=== PATIENT | female | born 1980 | race Caucasian/White ===

== ENCOUNTER 2017-09-12 04:38 | Inpatient (IN) | payer MEDICAID ==
[~2017-09-12] VITALS: Ht 160 cm; Wt 77.1 kg
[2017-09-12 04:52] VITALS: BP_SYST 144
--- NOTE | 2017-09-12 04:52 | NUR ---
Placed in room 08 . Side rails up. Report given to SANDRA Gann.
--- NOTE | 2017-09-12 04:52 | NUR ---
Pt states that she noticed R hand pain and swelling for the last four days. Pt reported heroin abuse and abscess on both arms. Redness and swelling noted. Will continue to monitor. No distress noted. AAOx4.
--- NOTE | 2017-09-12 04:53 | NUR ---
ER at bedside examining patient.
[2017-09-12] MEDS ORDERED: NACL 0.9% 1,000 ML IV ONE ×2 (04:55→08:15)
[2017-09-12] MEDS ORDERED: NS 1000 ML IV.SOLN IV ONE (05:00)
[2017-09-12] MEDS ORDERED: LEVOFLOXACIN 500 MG/D5W 100 ML IV ONE (05:00)
[2017-09-12] MEDS ORDERED: MORPHINE 4 MG/ML INJ. SYRINGE IVP ONE (05:00)
[2017-09-12] MEDS ORDERED: ONDANSETRON HCL 4 MG/2 ML VIAL IVP ONE (05:00)
--- NOTE | 2017-09-12 05:30 | NUR ---
Pt is hard stick. Multiple attempts. Dr. Simental made aware.
[2017-09-12 06:25] LABS: BARBITURATE, URINE NEGATIVE (NEG <=200); BENZODIAZEPINE, URINE NEGATIVE (NEG <=150); CANNABINOID, URINE NEGATIVE (NEG <=50); COCAINE, URINE NEGATIVE (NEG <=150); METHAMPHETAMINES SCREEN,URINE POSITIVE (NEG <=500); OPIATE, URINE POSITIVE (NEG <=100); PHENCYCLIDINE SCREEN,URINE NEGATIVE (NEG <=25); UR TRICYCLIC ANTIDEPRESSANTS NEGATIVE (NEG <=300); URINE AMPHETAMINE POSITIVE (NEG <=500); URINE METHADONE NEGATIVE (NEG <=200); URINE OXYCODONE SCREEN NEGATIVE (NEG <=100); URINE PROPOXYPHENE SCREEN NEGATIVE (NEG <=300)
[2017-09-12 07:02] LABS: BASOPHILS # (AUTO) 0.3 K/uL (0.0-0.2); EOSINOPHILS # (AUTO) 0.3 K/uL (0.0-0.4); EOSINOPHILS % (AUTO) 2.8 % (0.0-4.0); HEMATOCRIT 30.5 % (36-48); HEMOGLOBIN 10.3 g/dL (12.0-16.0); LYMPHOCYTES # (AUTO) 2.1 K/uL (1.0-5.5); LYMPHOCYTES % (AUTO) 18.9 % (20.5-51.5); MEAN CORPUSCULAR HEMOGLOBIN 31 pg (27-31); MEAN CORPUSCULAR HGB CONC 34 % (32-36); MEAN CORPUSCULAR VOLUME 90 fL (79.0-98.0); MONOCYTES # (AUTO) 0.5 K/uL (0.0-1.0); MONOCYTES % (AUTO) 4.2 % (1.7-9.3); NEUTROPHILS % (AUTO) 71.2 % (40.0-70.0); PLATELET COUNT (AUTO) 294 K/uL (130-430); RED BLOOD CELL COUNT(AUTO) 3.39 MIL/uL (4.2-6.2); RED CELL DISTRIBUTION WIDTH 13.4 % (9.0-15.0); WHITE BLOOD COUNT (AUTO) 11.2 K/uL (4.8-10.8)
[2017-09-12 07:09] LABS: CALCIUM 9.4 mg/dL (8.4-11.0); CREATININE 0.74 mg/dL (0.55-1.30)
--- NOTE | 2017-09-12 07:10 | NUR ---
Report and care endorsed to Willard FLORES.
[2017-09-12 07:14] LABS: ALBUMIN 3.3 g/dL (3.4-4.8); TOTAL BILIRUBIN 0.5 mg/dL (0.0-1.0)
[2017-09-12 07:21] LABS: BASOPHILS % (AUTO) 2.9 % (0.0-2.0)
[2017-09-12 07:24] LABS: POTASSIUM 4.2 mmol/L (3.5-5.1)
[2017-09-12 08:05] LABS: ERYTHROCYTE SEDIMENTATION RATE 62 MM/HR (0-20)
--- NOTE | 2017-09-12 08:30 | NUR ---
Admission: Received from ER on a wheelchair with the diagnosis of Cellulitis. Alert and oriented x4. Pain is 8/10 constant, shooting on the lower right arm. Oriented to room set up and hospital visiting time. Verbalized understanding. Call light within reach.
--- NOTE | 2017-09-12 08:32 | NUR ---
Patient will be admitted to care of Dr. Camilo. Admitted to MedSurg unit. Will go to room 125B. Belongings list completed. Summary report printed. Report will be given at bedside.
[2017-09-12 08:43] VITALS: BP_SYST 114
--- NOTE | 2017-09-12 09:00 | NUR ---
rounds rec patient accompanied by boyfriend at bedside. awake alert with ivf infusing well on the r foot. no infiltration noted. noted r arm to be swollen and both feet. advised to stay in bed to prevent further swelling. resp easy and unlabored. no acute distress noted. bed in low position and side rails up and locked.call light within reached and instructed patient to call for assistance.
[2017-09-12] MEDS ORDERED: HYDROcodone/ACETAMIN 5-325 MG TAB (NORCO/ VICODIN) PO PRN (10:00)
[2017-09-12] MEDS ORDERED: MORPHINE 2 MG/ML INJ. SYRINGE IVP ONE (10:00)
[2017-09-12] MEDS ORDERED: MAGNESIUM SULFATE 50 ML IV PRN (13:00)
[2017-09-12] MEDS ORDERED: LORazepam 2 MG/ML VIAL IVP PRN (13:00)
[2017-09-12] MEDS ORDERED: ZOLPIDEM TARTRATE 5 MG TABLET PO PRN (13:00)
[2017-09-12] MEDS ORDERED: ACETAMINOPHEN 325 MG TABLET PO PRN (13:00)
[2017-09-12] MEDS ORDERED: MUPIROCIN 2% TOPICAL OINTMENT 22 GM NS PRN (13:00)
[2017-09-12] MEDS ORDERED: DOCUSATE SODIUM 100 MG CAPSULE PO PRN (13:00)
[2017-09-12] MEDS ORDERED: POTASSIUM CHLORIDE 20 MEQ TAB.PRT.SR PO PRN (13:00)
[2017-09-12] MEDS ORDERED: DEXAMETHASONE SOD PHOSPHATE 4 MG/ML VIAL IVP ONE (13:15)
[2017-09-12] MEDS ORDERED: KETOROLAC TROMETHAMINE 30 MG VIAL IVP ONE (13:15)
--- NOTE | 2017-09-12 13:37 | NUR ---
rounds dr acosta at bedside to see patient.
[2017-09-12 13:45] LABS: AMYLASE 31 U/L (0-100); FREE T4 (FREE THYROXINE) 0.8 ng/dl (0.8-1.5)
[2017-09-12 13:47] LABS: ALCOHOL, BLOOD < 3 mg/dL (<10)
--- NOTE | 2017-09-12 14:08 | NUR ---
Consult MD: Ortho. Dr. Nava called (Dr. Mitchell arch cushion skiving machine operator) spoke to bairon dialed [phone] Alanis
[2017-09-12] MEDS ORDERED: DOCUSATE SODIUM 100 MG CAPSULE PO ONE (14:15)
[2017-09-12] MEDS ORDERED: THIAMINE HCL 100 MG TABLET PO ONE (14:15)
[2017-09-12] MEDS ORDERED: FOLIC ACID 1 MG TABLET PO ONE (14:15)
[2017-09-12] MEDS: PIPERACILLIN/TAZO 3.375 GM in NS 50 ML IV SCH ×3 (15:40→23:59)
[2017-09-12] MEDS: NACL 0.9% 1,000 ML IV SCH (15:41)
[2017-09-12] MEDS: LORazepam 1 MG TABLET PO SCH ×2 (15:42→21:24)
[2017-09-12] MEDS: MUPIROCIN 2% TOPICAL OINTMENT 22 GM NS SCH ×2 (15:43→21:00)
[2017-09-12] MEDS ORDERED: NICOTINE 21 MG/24 HR PATCH.TD24 TD ONE (16:00)
--- NOTE | 2017-09-12 16:00 | NUR ---
rounds sleeping at intervals. no sob noted.
--- NOTE | 2017-09-12 19:00 | NUR ---
closing notes seen by dr gorman at bedside and endorsed to [facility]. no sob noted. resting comfortably at bedside. no acute distress noted. denies pain at this time.
--- NOTE | 2017-09-12 19:46 | NUR ---
ROUNDS PATIENT RESTING COMFORTABLY IN BED, AWAKE, ALERT, ORIENTED X4, DENIES ANY ORACIO AND DISCOMFORT AT THIS TIME. ASSESSMENT DONE AND DOCUMENTED. SEE FLOWSHEET. NEEDS ATTENDED TO. SAFETY MEASURES IN PLACED. BED IN LOW AND LOCKED POSITION. CALL LIGHT PLACED WITHIN REACH.
[2017-09-12] MEDS: DOCUSATE SODIUM 100 MG CAPSULE PO SCH (21:24)
--- NOTE | 2017-09-12 22:05 | NUR ---
MEDICATION DUE MEDICATIONS GIVEN SCHEDULED, TOLERATED WELL. WILL CONTINUE TO MONITOR.
[2017-09-12 23:36] LABS: HCG,QUAL RESULT NEGATIVE (NEGATIVE)
[2017-09-12 23:46] LABS: BILIRUBIN,URINE NEGATIVE (NEGATIVE); BLOOD, URINE 3+ (NEGATIVE); CLARITY/URINE CLEAR (CLEAR); COLOR,URINE YELLOW (YELLOW); GLUCOSE,URINE NEGATIVE (NEGATIVE); KETONES,URINE NEGATIVE (NEGATIVE); LEUKOCYTE ESTERASE ,URINE NEGATIVE (NEGATIVE); NITRITE, URINE NEGATIVE (NEGATIVE); PH,URINE 7.5 (5.0-8.0); PROTEIN URINE NEGATIVE (NEGATIVE); UROBILINOGEN,URINE 0.2 (0.2-1.0)
--- NOTE | 2017-09-13 00:05 | NUR ---
ROUNDS PATIENT AWAKE, VITALS STABLE, DENIES ANY PAIN AT THIS TIME. FAMILY AT THE BEDSIDE VISITING PATIENT. WILL COTINUE TO MONITOR.
[2017-09-13 00:23] VITALS: BP_SYST 118
[2017-09-13 00:39] LABS: BACTERIA,URINE RARE /HPF (None Seen); RBC,URINE 20-50 /HPF (0-3); WBC,URINE 0-3 /HPF (0-3)
[2017-09-13] MEDS: OXYCODONE/ACETAMINOPHEN 5-325 TABLET PO PRN ×2 (01:52→09:00)
--- NOTE | 2017-09-13 02:15 | NUR ---
PATIENT RESTING: Patient resting quietly. No acute distress noted. Vital signs within normal range.
--- NOTE | 2017-09-13 04:17 | NUR ---
PATIENT RESTING: Patient resting quietly. No acute distress noted. Vital signs within normal range.
[2017-09-13] MEDS: LORazepam 1 MG TABLET PO SCH ×3 (05:24→21:34)
[2017-09-13] MEDS: NACL 0.9% 1,000 ML IV SCH ×3 (05:25→20:09)
[2017-09-13] MEDS: PIPERACILLIN/TAZO 3.375 GM in NS 50 ML IV SCH ×3 (05:25→19:49)
--- NOTE | 2017-09-13 06:54 | NUR ---
CLOSING NOTES PATIENT AWAKE, VITALS STABLE, NO PAIN AT THIS TIME. ALL NEEDS ATTENDED TO. SAFETY AND FALL MEASURES MAINTAINED. BED IN LOW AND LOCKED POSITION. CALL LIGHT PLACED WITHIN REACH.
--- NOTE | 2017-09-13 07:15 | NUR ---
Patient refuses blood draw for medical lab director despite explanation of purposes and benefits.
[2017-09-13 08:00] VITALS: BP_SYST 127
--- NOTE | 2017-09-13 08:00 | NUR ---
A/OX4, NO PAIN NOR DISTRESS AT THIS TIME. IV ON THE RIGHT FOOT, #22, INFUSING WITH NS 100ML/HR. AMBULATORY. INSTRUCTED SEX CRIMES DETECTIVE LIGHT, BED IN LOW AND LOCKED POSITION. WILL CONTINUE TO MONITOR.
[2017-09-13] MEDS: FOLIC ACID 1 MG TABLET PO SCH (08:59)
[2017-09-13] MEDS: DOCUSATE SODIUM 100 MG CAPSULE PO SCH ×2 (08:59→20:20)
[2017-09-13] MEDS: NICOTINE 21 MG/24 HR PATCH.TD24 TD SCH (08:59)
[2017-09-13] MEDS: THIAMINE HCL 100 MG TABLET PO SCH (08:59)
[2017-09-13] MEDS: MUPIROCIN 2% TOPICAL OINTMENT 22 GM NS SCH ×2 (09:00→21:00)
--- NOTE | 2017-09-13 10:05 | NUR ---
PATIENT IS WALKING IN THE ROOM, NO SIGNS OF DISTRESS NOTED.
[2017-09-13 10:06] LABS: HEMOGLOBIN A1C 5.3 % (4.8-5.6)
[2017-09-13 11:08] LABS: T4 (THYROXINE) 5.7 ug/dL (4.5-12.0)
--- NOTE | 2017-09-13 11:57 | NUR ---
PATIENT IS SLEEPING AT THIS TIME. CHEST RISING AND FALLING EVENLY WITHOUT DISTRESS.
[2017-09-13 12:00] VITALS: BP_SYST 122
[2017-09-13] MEDS: VANCOMYCIN HCL 1,000 MG in NS 250 ML IV SCH (16:40)
--- NOTE | 2017-09-13 17:00 | NUR ---
Patient needs a large bore IV access. Dr. Alanis is informed, and PICC is ordered.
[2017-09-13 17:43] LABS: PLATELET COUNT (AUTO) 140 K/uL (130-430); RED CELL DISTRIBUTION WIDTH 13.6 % (9.0-15.0)
[2017-09-13 17:52] LABS: HEMATOCRIT 29.8 % (36-48); HEMOGLOBIN 10.3 g/dL (12.0-16.0); MEAN CORPUSCULAR HEMOGLOBIN 31 pg (27-31); MEAN CORPUSCULAR HGB CONC 34 % (32-36); MEAN CORPUSCULAR VOLUME 91 fL (79.0-98.0); RED BLOOD CELL COUNT(AUTO) 3.29 MIL/uL (4.2-6.2); WHITE BLOOD COUNT (AUTO) 13.8 K/uL (4.8-10.8)
[2017-09-13 17:53] LABS: CALCIUM 9.5 mg/dL (8.4-11.0); CREATININE 0.77 mg/dL (0.55-1.30); PHOSPHORUS 2.6 mg/dL (2.7-4.5)
[2017-09-13 17:54] LABS: POTASSIUM 4.5 mmol/L (3.5-5.1)
[2017-09-13 18:02] LABS: ATYPICAL LYMPHOCYTES % 0 % (0-0); BAND % (MANUAL) 2 % (0-6); BASOPHILS % (MANUAL) 0 % (0-2); EOSINOPHILS % (MANUAL) 0 % (0-7); LYMPHOCYTES % (MANUAL) 24 % (20-46); MONOCYTES % (MANUAL) 2 % (0-11)
--- NOTE | 2017-09-13 18:25 | NUR ---
PICC NURSE IS AT BEDSIDE FOR INSERTION OF PICC. CHECKLIST AND CONSENT COMPLETED.
--- NOTE | 2017-09-13 19:23 | NUR ---
PICC NURSE CONFIRMS THAT PICC IS IN PROPER POSITION FOR USE.
--- NOTE | 2017-09-13 19:45 | NUR ---
Opening Notes Received patient resting in bed with friends at the bedside. AAOx4 and able to verbalize needs. Lungs and heart sounds wnl. PICC line inserted and okay to use. Flushed and has good blood return. IV on the right foot patent with no s/s of infection or infiltration. Patient has pain of 8/10 on the left hand and arm. Oriented the patient to the room and use of the call light and the phone. Patient refused bed alarm and was informed of the risks and benefits. Patient acknowledges teaching. Call light within reach and will monitor on rounds.
[2017-09-13 20:00] VITALS: BP_SYST 132
[2017-09-13] MEDS: ONDANSETRON HCL 4 MG/2 ML VIAL IVP PRN (20:19)
[2017-09-13] MEDS: MORPHINE 2 MG/ML INJ. SYRINGE IVP PRN (20:20)
--- NOTE | 2017-09-13 21:39 | NUR ---
REQUESTED FAN Patient stated she requested a fan from earlier today but they haven't brought it to her room yet. [employer] was notified and wanted approval from warehouse general laborer for them to obtain a fan from storage. cargo service supervisor okayed. Fan was brought to patient's room and was educated on safety precautions.
--- NOTE | 2017-09-13 22:09 | NUR ---
Patient in room sitting at the bedside. Administered pain medication and ativan. Informed patient to rest in bed due to possible instability when walking. patient understand and acknowledges teaching of indication and side effects. No respiratory distress at this time.
[2017-09-14] VITALS: BP_SYST 118
[2017-09-14] MEDS: PIPERACILLIN/TAZO 3.375 GM in NS 50 ML IV SCH ×5 (00:28→23:00)
--- NOTE | 2017-09-14 00:55 | NUR ---
Patient in bed asleep. measured PICC line circumference at 32cm. IV fluids infusing. PICC site clean dry and intact.
[2017-09-14 01:07] LABS: PROTHROMBIN TIME 10.1 SECS (9.5-12.5)
--- NOTE | 2017-09-14 02:05 | NUR ---
Patient in bed complaints of fan too cold. Fan turned off. No further needs. Call light within reach.
[2017-09-14] MEDS: VANCOMYCIN HCL 1,000 MG in NS 250 ML IV SCH (04:00)
--- NOTE | 2017-09-14 04:30 | NUR ---
No change of condition. Patient resting in bed.
[2017-09-14] MEDS: NACL 0.9% 1,000 ML IV SCH ×2 (05:15→14:56)
--- NOTE | 2017-09-14 05:20 | NUR ---
Patient ambulated in the hallways with steady gait then returned to bed. Blood draw for PTT via PICC line. Patient resting in bed with no complaints of pain or respiratory distress. Call light within reach. Addendum: 09/14/17 at 0526 by Felton Hammonds RN Blood draw for PTT via PICC line was for note 0055.
[2017-09-14] MEDS: LORazepam 1 MG TABLET PO SCH ×3 (05:43→21:40)
[2017-09-14] MEDS: MORPHINE 2 MG/ML INJ. SYRINGE IVP PRN ×2 (06:02→13:01)
[2017-09-14] MEDS: ONDANSETRON HCL 4 MG/2 ML VIAL IVP PRN ×2 (06:05→15:29)
[2017-09-14 06:49] LABS: BASOPHILS # (AUTO) 0.1 K/uL (0.0-0.2); BASOPHILS % (AUTO) 1.2 % (0.0-2.0); EOSINOPHILS # (AUTO) 0.1 K/uL (0.0-0.4); EOSINOPHILS % (AUTO) 1.2 % (0.0-4.0); HEMATOCRIT 28.6 % (36-48); HEMOGLOBIN 9.7 g/dL (12.0-16.0); LYMPHOCYTES # (AUTO) 3.1 K/uL (1.0-5.5); MEAN CORPUSCULAR HEMOGLOBIN 31 pg (27-31); MEAN CORPUSCULAR HGB CONC 34 % (32-36); MEAN CORPUSCULAR VOLUME 90 fL (79.0-98.0); MONOCYTES # (AUTO) 0.5 K/uL (0.0-1.0); MONOCYTES % (AUTO) 4.6 % (1.7-9.3); NEUTROPHILS # (AUTO) 6.9 K/uL (1.8-7.7); PLATELET COUNT (AUTO) 374 K/uL (130-430); RED BLOOD CELL COUNT(AUTO) 3.17 MIL/uL (4.2-6.2); RED CELL DISTRIBUTION WIDTH 13.8 % (9.0-15.0); WHITE BLOOD COUNT (AUTO) 10.7 K/uL (4.8-10.8)
--- NOTE | 2017-09-14 06:49 | NUR ---
CLosing notes Patient in bed resting. Awake and just ambulated to the restroom. Administered morphine for pain and tolerated it well. All needs have been met and will endorse to the oncoming nurse. Safety precautions in place.
[2017-09-14 06:57] LABS: CALCIUM 8.7 mg/dL (8.4-11.0); CREATININE 0.79 mg/dL (0.55-1.30); PHOSPHORUS 2.4 mg/dL (2.7-4.5); POTASSIUM 3.4 mmol/L (3.5-5.1)
[2017-09-14 08:10] VITALS: BP_SYST 117
[2017-09-14] MEDS: FOLIC ACID 1 MG TABLET PO SCH (08:44)
[2017-09-14] MEDS: THIAMINE HCL 100 MG TABLET PO SCH (08:44)
[2017-09-14] MEDS: MUPIROCIN 2% TOPICAL OINTMENT 22 GM NS SCH ×2 (08:44→21:00)
[2017-09-14] MEDS: NICOTINE 21 MG/24 HR PATCH.TD24 TD SCH (08:44)
[2017-09-14] MEDS: DOCUSATE SODIUM 100 MG CAPSULE PO SCH ×2 (08:45→21:40)
--- NOTE | 2017-09-14 08:50 | NUR ---
OPENING NOTE REPORT IS RECEIVED FROM PICKER TENDER NURSE AND CARE IS ENDORSED TO MYSELF. PT IS RECEIVED AWAKE, ALERT, AND ORIENTED X4. PT HAS PICC LINE TO RIGHT UPPER ARM THAT MEASURES 32CM. MORNING VS ARE STABLE. WHITE BOARD IS UPDATED AND PLAN OF CARE FOR TODAY IS DISCUSSED. CURRENT NEEDS ARE MET. BED IS AT LOWEST POSITION, THREE SIDE RAILS UP, BED ALARM IS ON. WILL CONTINUE TO MONITOR.
--- NOTE | 2017-09-14 10:05 | NUR ---
PT TAKEN TO MRI PT IS AWAKE AND ALERT. ASSISTED PT IN REMOVING NOSE RING AND EARRINGS. PT HAS CLOTH BRACELET THAT REQUIRED REMOVAL DUE TO METAL CHARMS AND PT STATED "I DO NOT WANT IT REMOVED BECAUSE YOU WILL HAVE TO CUT IT OFF IN ORDER FOR YOU TO REMOVE IT". I ADVISED PT IT NEEDED TO BE REMOVED IN ORDER TO PROCEED WITH MRI AND ADVISED HER THAT IT WAS ALSO HER REFUSE THE MRI IF SHE DID NOT WANT BRACELET TO BE CUT OFF. PT AGREED TO HAVE BRACELET CUT OFF AND IT WAS PLACED ALONG WITH EARRINGS IN HER BELONGINGS. WILL CONTINUE TO MONITOR UPON RETURN.
[2017-09-14 11:13] VITALS: BP_SYST 108
--- NOTE | 2017-09-14 12:48 | NUR ---
PT RETURN FROM MRI PT IS IN BED. NO SIGNS OR SYMPTOMS OF DISTRESS OR SOB NOTED. PT COMPLAINS OF PAIN IN BILATERAL LEGS AND RIGHT ARM. WILL GIVE PRN PAIN MEDICATION. LUNCH WAS BROUGHT TO PT. CURRENT NEEDS ARE MET. BED IS AT LOWEST POSITION, CALL LIGHT WITHIN REACH, THREE SIDE RAILS UP, BED ALARM IS ON. WILL CONTINUE TO MONITOR.
--- NOTE | 2017-09-14 14:30 | NUR ---
ROUNDS LATE ENTRY DUE TO PT CARE: PT IS AWAKE AND ALERT. NO SIGNS OR SYMPTOMS OF DISTRESS OR SOB NOTED. BOYFRIEND IS AT BEDSIDE. PT WAS TOLD IF SHE COULD GIVE SYRINGES THAT ARE IN A CLEAR DENTAL HYGIENE BAG TO HER BOYFRIEND OR TURN THEM IN, PT STATES "I WILL GIVE THEM TO MY BOYFRIEND". SYRINGES WERE NO LONGER VISIBLE IN THE BAG THAT THEY WERE IN AND PT VERBALIZES THAT SHE GAVE THEM TO HER "BOYFRIEND TO TAKE HOME". CURRENT NEEDS ARE MET. BED IS AT LOWEST POSITION, CALL LIGHT WITHIN REACH, THREE SIDE RAILS UP, BED ALARM IS ON. WILL CONTINUE TO MONITOR.
[2017-09-14 15:16] VITALS: BP_SYST 124
[2017-09-14 16:13] LABS: CALCIUM 8.6 mg/dL (8.4-11.0); CREATININE 0.76 mg/dL (0.55-1.30); POTASSIUM 3.4 mmol/L (3.5-5.1)
--- NOTE | 2017-09-14 16:26 | NUR ---
Social Service Note: Pt referred to social security specialist by SCRATCH POLISHER; SCRATCH POLISHER met with pt at bedside. Pt states that she lives home alone. SCRATCH POLISHER spoke with pt about her positive urine drug screen. Pt states that she uses IV heroin; pt states that she only uses "a couple times a month". SCRATCH POLISHER spoke with pt about substance abuse treatment programs; pt states that she is in a program in [place] currently; SCRATCH POLISHER offered further substance abuse treatment resources; pt stated that she did not need any resources. SCRATCH POLISHER encouraged pt to reach out to SCRATCH POLISHER should pt change her mind. Pt states that she does have a 18 year old son who does not live with her. Pt states that she does have a history of anxiety/depression pt states that both are well managed at this time; pt states that she currently does not take any medications for anxiety/depression; pt reports that she is not currently being followed by a psychiatrist. SCRATCH POLISHER has completed the discharge plan assessment; pt has no anticipated needs for discharge; pt plans to return home. SCRATCH POLISHER will remain available for support and will follow up as needed.
--- NOTE | 2017-09-14 16:45 | NUR ---
ROUNDS PT IS SLEEPING BUT EASILY AWAKEN. NO SIGNS OR SYMPTOMS OF DISTRESS OR SOB NOTED. PT DENIES ANY PAIN. CURRENT NEEDS ARE MET. BED IS AT LOWEST POSITION, CALL LIGHT WITHIN REACH, THREE SIDE RAILS UP, BED ALARM IS ON. WILL CONTINUE TO MONITOR.
--- NOTE | 2017-09-14 18:22 | NUR ---
CLOSING NOTE PT IS AWAKE AND ALERT, EATING DINNER. NO SIGNS OR SYMPTOMS OF DISTRESS OR SOB NOTED. PT DENIES ANY PAIN. IV ANTIBIOTIC IS PLACED AND INFUSING AT 100ML/HR. CURRENT NEEDS ARE MET. BED IS AT LOWEST POSITION, CALL LIGHT WITHIN REACH, THREE SIDE RAILS UP, BED ALARM IS ON. WILL CONTINUE TO MONITOR UNTIL CARE AND REPORT IS GIVEN TO SAND MIXER OPERATOR NURSE.
--- NOTE | 2017-09-14 19:47 | NUR ---
INITIAL NOTE AT INITIAL ASSESSMENT, PATIENT IS RESTING IN BED, STABLE, NO SIGNS OF RESPIRATORY DISTRESS. PATIENT VERBALIZES NO PAIN. PLAN OF CARE FOR THE EVENING IS COMMUNICATED WITH PATIENT. CALL LIGHT- TEACH BACK IS SUCCESSFUL. BED IS LOCKED, ALARMED, AND AT THE LOWEST LEVEL.
[2017-09-14 19:53] VITALS: BP_SYST 115
--- NOTE | 2017-09-14 21:43 | NUR ---
BED ALARM REFUSED / NOTE PATIENT IS GETTING OUT OF BED TO RESTROOM, STABLE, NO SIGNS OF RESPIRATORY DISTRESS. PATIENT VERBALIZES NO PAIN. PATIENT IS REFUSING BED ALARM AT THIS TIME, SAFETY AND FALL PRECAUTION PROTOCOLS WERE DISCUSSED WITH PATIENT BUT PATIENT STILL REFUSES BED ALARM. HER GAIT ASSESSED AT THIS TIME IS STEAD, SHE IS NOT A FALL RISK PER [facility] FALL SCALE. CALL LIGHT WITHIN REACH. BED IS LOCKED, AND AT THE LOWEST LEVEL.
--- NOTE | 2017-09-14 23:40 | NUR ---
NOTE PATIENT IS SLEEPING, STABLE, NO SIGNS OF RESPIRATORY DISTRESS. CALL LIGHT WITHIN REACH. BED IS LOCKED, AND AT THE LOWEST LEVEL.
[2017-09-15] VITALS: BP_SYST 124
[2017-09-15] MEDS: NACL 0.9% 1,000 ML IV SCH ×2 (01:15→11:15)
[2017-09-15] MEDS: MORPHINE 2 MG/ML INJ. SYRINGE IVP PRN ×3 (01:29→14:34)
--- NOTE | 2017-09-15 01:38 | NUR ---
NOTE PATIENT IS SLEEPING, STABLE, NO SIGNS OF RESPIRATORY DISTRESS. PAIN MEDICATION GIVEN BY CHARGE NURSE WHILE PRIMARY RN WAS ON BREAK WAS EFFECTIVE EVIDENCE BY PATIENT BEING ABLE TO FALL ASLEEP. CALL LIGHT WITHIN REACH. BED IS LOCKED, AND AT THE LOWEST LEVEL.
--- NOTE | 2017-09-15 03:35 | NUR ---
NOTE PATIENT IS SLEEPING, STABLE, NO SIGNS OF RESPIRATORY DISTRESS. PATIENT VERBALIZES NO PAIN. CALL LIGHT WITHIN REACH. BED IS LOCKED, AND AT THE LOWEST LEVEL.
--- NOTE | 2017-09-15 05:14 | NUR ---
PATIENT REFUSES AM LAB DRAWS PATIENT IS RESTING IN BED, STABLE, NO SIGNS OF RESPIRATORY DISTRESS. NETBACKUP ADMIN IS AT BEDSIDE, PATIENT IS REFUSING LAB DRAWS AT THIS TIME DESPITE EDUCATION, PATIENT HAS AGREED TO HAVE LABS DRAWN LATER IN THE MORNING- WILL ENDORSE TO AM RN. PATIENT VERBALIZES NO PAIN. CALL LIGHT WITHIN REACH. BED IS LOCKED, AND AT THE LOWEST LEVEL.
[2017-09-15] MEDS: PIPERACILLIN/TAZO 3.375 GM in NS 50 ML IV SCH ×2 (05:46→14:34)
[2017-09-15] MEDS: LORazepam 1 MG TABLET PO SCH ×2 (05:46→14:34)
--- NOTE | 2017-09-15 06:39 | NUR ---
CLOSING NOTE PATIENT IS SLEEPING, STABLE, NO SIGNS OF RESPIRATORY DISTRESS. CALL LIGHT WITHIN REACH. BED IS LOCKED, AND AT THE LOWEST LEVEL. WILL CONTINUE TO MONITOR UNTIL SHIFT REPORT IS GIVEN AT BEDSIDE TO AM NURSE.
--- NOTE | 2017-09-15 07:30 | NUR ---
opening note pt in bed asleep -equal chest rise noted. bed alarm being refused. call light within reach, with bed in lowest position
[2017-09-15 08:00] VITALS: BP_SYST 127
[2017-09-15] MEDS: MUPIROCIN 2% TOPICAL OINTMENT 22 GM NS SCH (09:00)
[2017-09-15] MEDS: DOCUSATE SODIUM 100 MG CAPSULE PO SCH (09:03)
[2017-09-15] MEDS: NICOTINE 21 MG/24 HR PATCH.TD24 TD SCH (09:03)
[2017-09-15] MEDS: FOLIC ACID 1 MG TABLET PO SCH (09:03)
[2017-09-15] MEDS: THIAMINE HCL 100 MG TABLET PO SCH (09:03)
[2017-09-15] MEDS: ONDANSETRON HCL 4 MG/2 ML VIAL IVP PRN (09:07)
--- NOTE | 2017-09-15 09:33 | NUR ---
MED PASS MORNING MEDS GIVEN PT C/O OF ARM PAIN 7/10 GIVEN MORPHINE 2MG IVP ORDERED. PT ALSO C/O OF NAUSEA GIVEN ZOFRAN IVP ORDERED. SAFETY MAINTAINED.
--- NOTE | 2017-09-15 10:21 | NUR ---
PT TAKEN TO MRI AT THIS TIME
[2017-09-15] MEDS ORDERED: GADOPENTETATE DIMEGLUMINE 15 ML VIAL IV ONE (10:34)
[2017-09-15 10:48] LABS: CREATININE 0.87 mg/dL (0.55-1.30); HEMATOCRIT 31.2 % (36-48); HEMOGLOBIN 10.6 g/dL (12.0-16.0); MEAN CORPUSCULAR HEMOGLOBIN 31 pg (27-31); MEAN CORPUSCULAR HGB CONC 34 % (32-36); MEAN CORPUSCULAR VOLUME 91 fL (79.0-98.0); PLATELET COUNT (AUTO) 245 K/uL (130-430); POTASSIUM 3.9 mmol/L (3.5-5.1); RED BLOOD CELL COUNT(AUTO) 3.41 MIL/uL (4.2-6.2); RED CELL DISTRIBUTION WIDTH 13.3 % (9.0-15.0); WHITE BLOOD COUNT (AUTO) 8.5 K/uL (4.8-10.8)
[2017-09-15 11:47] LABS: BAND % (MANUAL) 0 % (0-6); BASOPHILS % (MANUAL) 0 % (0-2); EOSINOPHILS % (MANUAL) 2 % (0-7); LYMPHOCYTES % (MANUAL) 27 % (20-46); MONOCYTES % (MANUAL) 5 % (0-11)
[2017-09-15 13:00] VITALS: BP_SYST 136
--- NOTE | 2017-09-15 14:14 | NUR ---
CONSULTATION PAGED REASON FOR CONSULT: R hand abscess WAS CONSULT CALLED: y PERSON WHO WAS NOTIFIED: Mary CONSULTING PHYSICIAN: Dr. Alanis PARTS INTERPRETER PHONE NUMBER: [phone] ORDERING PHYSICIAN: Dr. Camilo
--- NOTE | 2017-09-15 14:19 | NUR ---
CONSULTATION PAGED REASON FOR CONSULT: R Hand Abscess WAS CONSULT CALLED: y PERSON WHO WAS NOTIFIED: Jenae CONSULTING PHYSICIAN: Dr. Oconnor ICE HANDLER PHONE NUMBER: [phone] ORDERING PHYSICIAN: Dr. Camilo
--- NOTE | 2017-09-15 14:30 | NUR ---
pt returned from mri at 1145 according to nuclear reactor technician, i checked the room hourly and patient was not in room. at this time patient stated she just got in the room at 1400. i asked her again where she was because i did not see her during rounding. pt stated she went outside to talk on phone. patient educated on safety.
--- NOTE | 2017-09-15 14:39 | NUR ---
med pass ivpb zosyn hung at this time. scheduled ativan given. pt c/o of arm pain 08/25. medicated as ordered. safety maintained.
[2017-09-15 15:12] VITALS: BP_SYST 131
[2017-09-15 15:31] LABS: CREATININE 0.82 mg/dL (0.55-1.30); POTASSIUM 3.5 mmol/L (3.5-5.1)
--- NOTE | 2017-09-15 16:20 | NUR ---
patient in bathroom near icu at this time- security called.
[2017-09-15] MEDS ORDERED: CLINDAMYCIN HCL 150 MG CAPSULE PO SCH (18:00)
[2017-09-15 19:38] LABS: BARBITURATE, URINE NEGATIVE (NEG <=200); BENZODIAZEPINE, URINE POSITIVE (NEG <=150); CANNABINOID, URINE NEGATIVE (NEG <=50); COCAINE, URINE NEGATIVE (NEG <=150); METHAMPHETAMINES SCREEN,URINE POSITIVE (NEG <=500); OPIATE, URINE POSITIVE (NEG <=100); PHENCYCLIDINE SCREEN,URINE NEGATIVE (NEG <=25); UR TRICYCLIC ANTIDEPRESSANTS NEGATIVE (NEG <=300); URINE AMPHETAMINE POSITIVE (NEG <=500); URINE METHADONE NEGATIVE (NEG <=200); URINE OXYCODONE SCREEN NEGATIVE (NEG <=100); URINE PROPOXYPHENE SCREEN NEGATIVE (NEG <=300)
--- NOTE | 2017-09-15 19:55 | NUR ---
med pass clindmycin po given at this time
--- NOTE | 2017-09-15 19:55 | NUR ---
closing note all needs met through shift, safety maintained. care endorsed
--- NOTE | 2017-09-15 19:56 | NUR ---
INITIAL NOTE AT INITIAL VISIT, PATIENT IS VISUALLY FRUSTRATED, SHE IS STANDING AT BEDSIDE AND VERBALIZES "I AM LEAVING RIGHT NOW, I FEEL LIKE I AM BEING TREATED LIKE A CRIMINAL." PATIENT WAS GIVEN EDUCATION ON SAFETY PROTOCOLS AT THIS TIME, PATIENT LISTENS BUT IS STILL ANGRY AND DOES NOT WANT TO ACCEPT PROTOCOL. PATIENT VERBALIZES THAT SHE STILL WANTS TO LEAVE AMA DESPITE SEVERAL RNS EXPLAINING TO HER THE RISKS OF LEAVING AMA. PATIENT IS REFUSING VITALS DESPITE EDUCATION GIVEN. RIGHT UPPER ARM PICC LINE AND RIGHT FOOT IV IS REMOVED BY RN KASSI AT THIS TIME, TIPS BOTH INTACT, NO ACTIVE BLEEDING ON BOTH SITES, PATIENT TOLERATED WELL. BOYFRIEND IS AT BEDSIDE TO TAKE HER HOME. PATIENT HAS SIGNED AMA FORM. MD HAS BEEN CALLED AND MADE AWARE, HE HAS NO FURTHER ORDERS AT THIS TIME.
--- NOTE | 2017-09-15 20:25 | NUR ---
PATIENT LEAVING AMA PATIENT IS LEAVING AMA AT THIS TIME, SHE IS ABLE TO WALK OUT THE HOSPITAL WITHOUT ASSISTANCE. BOYFRIEND IS WITH PATIENT. PATIENT BELONGINGS DOCUMENTED, SHE SAYS SHE IS MISSING 2 BRACELETS BUT REFUSES TO ALLOW FOR RN TO CHECK HER MANY PURSES THAT SHE HAS WITH HER, HER INFORMATION IS TAKEN DOWN IN CASE THEY ARE FOUND AND CAN BE RETURNED. PATIENT STILL REFUSING VITALS.
== END 2017-09-15 20:25 | disposition left against medical advice (07) | DRG 383 ==
LOC: SED 04:38 → SMU 08:14
PROVIDERS: ADMIT General Practice; ATTEND General Practice
PROC: 02HV33Z Insertion of Infusion Device into Superior Vena Cava, Percutaneous Approach (ICD-10-PCS; principal; 2017-09-13)
DX: L03.113 Cellulitis of right upper limb (principal); G92 Toxic encephalopathy; E87.1 Hypo-osmolality and hyponatremia; E44.1 Mild protein-calorie malnutrition; F11.10 Opioid abuse, uncomplicated; F15.10 Other stimulant abuse, uncomplicated; L03.114 Cellulitis of left upper limb; L02.511 Cutaneous abscess of right hand; E66.9 Obesity, unspecified; F17.210 Nicotine dependence, cigarettes, uncomplicated; Z53.21 Procedure and treatment not carried out due to patient leaving prior to being seen by health care provider; Z87.442 Personal history of urinary calculi; Z91.19 Patient's noncompliance with other medical treatment and regimen; Z98.891 History of uterine scar from previous surgery; Z68.30 Body mass index [BMI] 30.0-30.9, adult
CPT/HCPCS: 36415; 71045; 73221; 73719; 80048; 80053; 80307; 81000-TC; 82140-TC; 82150-TC; 82550-TC; 83036; 83605; 83690-TC; 83735-TC; 83880; 84100-TC; 84436; 84439; 84443-TC; 84479; 84480; 84703; 85007; 85025; 85027; 85610-TC; 85651-TC; 85730-TC; 87040-TC; 87081; 93005; 93306; 93970; 96365; 96375; 99285; A9579; C1751; G0482; J1100; J1885; J1956; J2270; J2405; J2543; J3370; J7030; J7050

== ENCOUNTER 2019-05-03 12:27 | Emergency (ER) | payer MEDICAID ==
[~2019-05-03] VITALS: Ht 152.4 cm; Wt 81.6 kg
[2019-05-03 12:27] VITALS: BP_SYST 125
--- NOTE | 2019-05-03 12:27 | NUR ---
Placed in room 1. Placed on hospital monitor, blood pressure machine and pulse oximeter. To gown for exam. Side rails up.
--- NOTE | 2019-05-03 12:28 | NUR ---
Patient is awake, alert, and oriented x2. Per paramedics patient had a tonic clonic seizure lasting 30 seconds that was witnessed by her boyfriend. Patient reports a history of seizure, but is not on medication for seizures, she can not remember the last seizure she has had. Patient has no complaints at this time.
[2019-05-03] MEDS ORDERED: levETIRAcetam 1,000 MG in NS 100 ML IV ONE (12:45)
--- NOTE | 2019-05-03 13:00 | NUR ---
seizure precautions applied.
--- NOTE | 2019-05-03 13:10 | NUR ---
ER at bedside examining patient.
[2019-05-03 13:48] LABS: CALCIUM 9.9 mg/dL (8.4-11.0); CREATININE 0.94 mg/dL (0.55-1.30); POTASSIUM 3.6 mmol/L (3.5-5.1)
[2019-05-03 13:54] LABS: ALBUMIN 2.8 g/dL (3.4-4.8); TOTAL BILIRUBIN 0.2 mg/dL (0.0-1.0)
--- NOTE | 2019-05-03 14:40 | NUR ---
# 20 gauge angiocath placed to REJ by Dr. Jeffries. Use of asceptic technique. Opsite placed over site. Blood return noted. Blood for lab drawn from site. Flushed with 10 cc of normal saline. No evidence of infiltration noted. Patient tolerated well.
--- NOTE | 2019-05-03 14:48 | NUR ---
Taylor currently infusing per MD order.
[2019-05-03 15:09] LABS: BASOPHILS # (AUTO) 0.1 K/uL (0.0-0.2); EOSINOPHILS # (AUTO) 0.2 K/uL (0.0-0.4); EOSINOPHILS % (AUTO) 2.6 % (0.0-4.0); HEMATOCRIT 27.6 % (36-48); HEMOGLOBIN 8.6 g/dL (12.0-16.0); LYMPHOCYTES # (AUTO) 1.2 K/uL (1.0-5.5); LYMPHOCYTES % (AUTO) 15.1 % (20.5-51.5); MEAN CORPUSCULAR HEMOGLOBIN 23 pg (27-31); MEAN CORPUSCULAR HGB CONC 31 % (32-36); MEAN CORPUSCULAR VOLUME 74 fL (79.0-98.0); MONOCYTES # (AUTO) 0.3 K/uL (0.0-1.0); MONOCYTES % (AUTO) 4.6 % (1.7-9.3); NEUTROPHILS # (AUTO) 5.8 K/uL (1.8-7.7); NEUTROPHILS % (AUTO) 76.7 % (40.0-70.0); PLATELET COUNT (AUTO) 568 K/uL (130-430); RED BLOOD CELL COUNT(AUTO) 3.71 MIL/uL (4.2-6.2); RED CELL DISTRIBUTION WIDTH 27.5 % (9.0-15.0); WHITE BLOOD COUNT (AUTO) 7.6 K/uL (4.8-10.8)
[2019-05-03] MEDS ORDERED: KETOROLAC TROMETHAMINE 30 MG VIAL IVP ONE (15:45)
[2019-05-03 16:00] VITALS: BP_SYST 100
--- NOTE | 2019-05-03 16:02 | NUR ---
Patient given written and verbal discharge instructions and verbalizes understanding. ER MD discussed with patient the results and treatment provided. Patient in stable condition. ID arm band removed. IV catheter removed intact and dressing applied, no active bleeding. Rx of KEPPRA given. Patient educated on pain management and to follow up with PMD. Pain Scale 3/10. Opportunity for questions provided and answered. Medication side effect fact sheet provided.
== END 2019-05-03 16:00 | disposition home or self-care (01) ==
LOC: SED 12:27
DX: R56.9 Unspecified convulsions (principal); J45.909 Unspecified asthma, uncomplicated
CPT/HCPCS: 36415; 80053; 85025; 96365; 96375; 99284; J1885; J1953

== ENCOUNTER 2019-05-13 08:55 | Emergency (ER) | payer MEDICAID ==
[~2019-05-13] VITALS: Ht 157.5 cm; Wt 90.7 kg
[2019-05-13 08:55] VITALS: BP_SYST 150
[2019-05-13] MEDS ORDERED: NACL 0.9% 1,000 ML IV ONE (09:15)
[2019-05-13] MEDS ORDERED: MORPHINE 2 MG/ML INJ. SYRINGE IVP ONE (09:15)
[2019-05-13 10:56] VITALS: BP_SYST 144
== END 2019-05-13 10:56 | disposition home or self-care (01) ==
LOC: SED 08:55
DX: K59.00 Constipation, unspecified (principal); J45.909 Unspecified asthma, uncomplicated; Z90.49 Acquired absence of other specified parts of digestive tract
CPT/HCPCS: 74176; 96372; 99284; J2270

== ENCOUNTER 2020-01-10 19:44 | Emergency (ER) | payer MEDICAID ==
[~2020-01-10] VITALS: Ht 160 cm; Wt 77.1 kg
[2020-01-10 19:45] VITALS: BP_SYST 150
[2020-01-10 19:48] VITALS: BP_SYST 123
[2020-01-10 20:23] VITALS: BP_SYST 123
== END 2020-01-10 19:50 | disposition left against medical advice (07) ==
LOC: SED 19:44
DX: F19.10 Other psychoactive substance abuse, uncomplicated (principal)
CPT/HCPCS: 99283

== ENCOUNTER 2022-06-19 01:08 | Emergency (ER) | payer MEDICAID ==
[~2022-06-19] VITALS: Ht 160 cm; Wt 90.7 kg
[2022-06-19 01:36] VITALS: BP_SYST 123
[2022-06-19] MEDS ORDERED: NAPR-1172 PO (04:00)
[2022-06-19] MEDS ORDERED: AMOX500C2 PO (04:00)
[2022-06-19] MEDS ORDERED: ROBAC PO (04:00)
[2022-06-19 04:08] VITALS: BP_SYST 126
== END 2022-06-19 04:08 | disposition home or self-care (01) ==
LOC: SED 01:08
DX: J06.9 Acute upper respiratory infection, unspecified (principal); H66.92 Otitis media, unspecified, left ear; R09.81 Nasal congestion; H92.02 Otalgia, left ear; R05.9 Cough, unspecified; J45.909 Unspecified asthma, uncomplicated; Z79.899 Other long term (current) drug therapy
CPT/HCPCS: 99283

== ENCOUNTER 2023-01-19 18:23 | Emergency (ER) | payer MEDICAID ==
[~2023-01-19] VITALS: Ht 160 cm; Wt 88.5 kg
[~2023-01-19 18:23] MED LIST: AMOX500C2 PO; NAPR-1172 PO; ROBAC PO
[2023-01-19 18:47] VITALS: BP_SYST 125; PULSE 85; RESP 18; TEMP 98.3; O2SAT 98
== END 2023-01-19 21:20 | disposition left against medical advice (07) ==
LOC: SED 18:23
DX: K13.79 Other lesions of oral mucosa (principal); Z79.899 Other long term (current) drug therapy
CPT/HCPCS: 99281

== ENCOUNTER 2023-07-19 16:48 | Emergency (ER) | payer MEDICAID ==
[~2023-07-19] VITALS: Ht 160 cm; Wt 90.7 kg
[2023-07-19 16:50] VITALS: BP_SYST 135; PULSE 101; RESP 17; TEMP 97.8; O2SAT 100
[2023-07-19 17:48] LABS: BILIRUBIN,URINE NEGATIVE (NEGATIVE); BLOOD, URINE 2+ (NEGATIVE); CLARITY/URINE CLOUDY (CLEAR); COLOR,URINE YELLOW (YELLOW); GLUCOSE,URINE NEGATIVE (NEGATIVE); KETONES,URINE NEGATIVE (NEGATIVE); LEUKOCYTE ESTERASE ,URINE 3+ (NEGATIVE); NITRITE, URINE POSITIVE (NEGATIVE); PROTEIN URINE 1+ (NEGATIVE); UROBILINOGEN,URINE 0.2 (0.2-1.0)
[2023-07-19 18:24] LABS: BACTERIA,URINE MANY /HPF (None Seen); WBC,URINE >100 /HPF (0-3)
[2023-07-19 18:25] LABS: MUCUS,URINE None Seen /LPF (None Seen)
[2023-07-19] MEDS ORDERED: ONDA-8 TL (19:30)
[2023-07-19] MEDS ORDERED: AUG875 PO (19:30)
[2023-07-19] MEDS: cefTRIAXone 500 MG in LIDOCAINE 1%, 20 ML MDV 1 ML IM ONE (19:42)
[2023-07-19] MEDS ORDERED: PHEN-890 PO (19:48)
[2023-07-19 19:50] VITALS: BP_SYST 135; PULSE 101; RESP 17; TEMP 97.8; O2SAT 100
== END 2023-07-19 19:50 | disposition home or self-care (01) ==
LOC: SED 16:48
DX: N39.0 Urinary tract infection, site not specified (principal); R31.9 Hematuria, unspecified; J45.909 Unspecified asthma, uncomplicated; Z79.899 Other long term (current) drug therapy; Z79.2 Long term (current) use of antibiotics
CPT/HCPCS: 99283; 81001; 87086; 81025; 96372; J0696; 81000; 81015; 87186